=== PATIENT | female | born 1965 | race Two or more races ===

== ENCOUNTER 2023-11-09 12:12 | Emergency (ER) | payer OTHER ==
[~2023-11-09] VITALS: Ht 160 cm; Wt 107.0 kg
[2023-11-09 13:56] VITALS: BP 137/74; PULSE 88; RESP 18; TEMP 98.6; O2SAT 96
[2023-11-09 14:26] LABS: Basophils # (auto) 0.1 10 ^3/uL (0-0.2); Basophils % (auto) 0.9 % (0.0-2.0); Eosinophils # (auto) 0.1 10 ^3/uL (0-0.8); Eosinophils % (auto) 0.8 % (0.0-7.0); Hematocrit 42.2 % (36.0-46.0); Lymphocytes # (auto) 2.7 10 ^3/uL (0.4-5.4); Lymphocytes % (auto) 34.5 % (10.0-50.0); Mean Corpuscular Hgb Conc. 33.2 g/dL (32.0-36.0); Mean Corpuscular Volume 87.5 fL (80.0-100.0); Monocytes # (auto) 0.7 10 ^3/uL (0-1.3); Monocytes % (auto) 9.3 % (0.0-12.0); Neutrophils # (auto) 4.2 10 ^3/uL (1.6-8.6); Neutrophils % (auto) 54.5 % (37.0-80.0); Nucleated Red Blood Cells % 0.1 %; Red Blood Cells 4.82 10^6/uL (4.0-5.20); White Blood Cell 7.8 10^3/uL (4.4-10.8)
[2023-11-09 14:32] LABS: Chloride 106 mmol/L (98-107); Potassium 4.2 mmol/L (3.5-5.1); Sodium 139 mmol/L (136-145)
[2023-11-09 14:33] LABS: Anion Gap 9 (5-15); Calcium 9.8 mg/dL (8.5-10.1); Carbon Dioxide 24 mmol/L (20-30)
[2023-11-09 14:38] LABS: BUN/Creatinine Ratio 10.8 (10.0-20.0); Blood Urea Nitrogen 7 mg/dL (9-23); Glucose 102 mg/dL (74-106)
[2023-11-09] MEDS ORDERED: HYDR50CA PO (15:16)
== END 2023-11-09 15:23 | disposition home or self-care (01) ==
LOC: ER 12:12
DX: F41.1 Generalized anxiety disorder (principal); Z79.899 Other long term (current) drug therapy
CPT/HCPCS: 36415; 80048; 84443; 84484; 85025

== ENCOUNTER 2024-01-13 21:01 | Emergency (ER) | payer MEDICAID, OTHER ==
[~2024-01-13] VITALS: Ht 160 cm; Wt 107.2 kg
[~2024-01-13 21:01] MED LIST: HYDR50CA PO
[2024-01-13] MEDS: ALBUTEROL SULF 2.5 MG/0.5ML(0.5%) NEB SOLN NEB ONE ×2 (21:37→21:38)
[2024-01-13] MEDS: IPRATROPIUM BROM 0.5 MG/2.5ML INH SOL NEB ONE ×2 (21:38)
[2024-01-13 22:02] LABS: Basophils # (auto) 0.1 10 ^3/uL (0-0.2); Basophils % (auto) 0.9 % (0.0-2.0); Eosinophils # (auto) 0 10 ^3/uL (0-0.8); Eosinophils % (auto) 0.5 % (0.0-7.0); Hematocrit 43.3 % (36.0-46.0); Hemoglobin 14.7 g/dL (12.2-16.2); Lymphocytes # (auto) 2.9 10 ^3/uL (0.4-5.4); Lymphocytes % (auto) 30.6 % (10.0-50.0); Mean Corpuscular Hemoglobin 29.6 pg (28.0-32.0); Mean Corpuscular Volume 87.1 fL (80.0-100.0); Monocytes # (auto) 0.8 10 ^3/uL (0-1.3); Monocytes % (auto) 8.4 % (0.0-12.0); Neutrophils # (auto) 5.7 10 ^3/uL (1.6-8.6); Neutrophils % (auto) 59.6 % (37.0-80.0); Nucleated Red Blood Cells % 0.1 %; Red Blood Cells 4.97 10^6/uL (4.0-5.20); Red Cell Distribution Width 13.6 % (11.8-14.3); White Blood Cell 9.5 10^3/uL (4.4-10.8)
[2024-01-13 22:15] LABS: Chloride 104 mmol/L (98-107); Potassium 3.3 mmol/L (3.5-5.1); Sodium 137 mmol/L (136-145)
[2024-01-13 22:16] LABS: Anion Gap 15 (5-15); Carbon Dioxide 18 mmol/L (20-30)
[2024-01-13 22:21] LABS: BUN/Creatinine Ratio 8.8 (10.0-20.0); Blood Urea Nitrogen 8 mg/dL (9-23); Glucose 194 mg/dL (74-106)
[2024-01-13] MEDS: predniSONE 20 MG TAB PO ONE (22:44)
[2024-01-13] MEDS ORDERED: PRED20TA2 PO (22:55)
[2024-01-13] MEDS ORDERED: ALBU108A5 IN (22:55)
[2024-01-13 23:05] VITALS: BP 133/83; PULSE 120; RESP 20; O2SAT 100
== END 2024-01-13 23:12 | disposition home or self-care (01) ==
LOC: ER 21:01
DX: J45.901 Unspecified asthma with (acute) exacerbation (principal); I10 Essential (primary) hypertension
CPT/HCPCS: 36415; 71045; 80048; 84484; 85025; 93005; 94640; 99285; J7512; J7644